=== PATIENT | male | born 1945 | race Caucasian/White ===

== ENCOUNTER 2017-03-09 09:52 | Outpatient (CLI) | payer MEDICARE, OTHER ==
--- NOTE | 2017-03-09 13:04 | XRAY Report ---
ESOPHAGRAM: 03/09/2017 CLINICAL INDICATION: Episodes of food getting stuck. FINDINGS: Esophagram was performed in the upright and prone positions. The hypopharynx appears unre markable. The esophagus is normal in caliber. Tertiary contractions are seen. There is a small sli ding hiatal hernia, which produced reflux throughout the course of the study. No esophageal ulcerati on, mass lesion, or stricturing is seen. A 13-mm barium pill passed freely through the esophagus and into the stomach. IMPRESSION: SMALL SLIDING HIATAL HERNIA, PRODUCING REFLUX. PRESBYESOPHAGUS. NO ULCERATION OR MASS LESION. FLUOROSCOPY TIME: 1 minute, 43 seconds; 22 spot images obtained. JOB #: [id number] EXT JOB #:[id number]
[2017-03-09] MEDS ORDERED: BARIUM SULFATE 176 GM BOTTLE PO ONE (13:59)
[2017-03-09] MEDS ORDERED: BARIUM SULFATE 135 ML BOTTLE PO ONE (13:59)
== END 2017-03-09 09:53 | disposition home or self-care (01) ==
LOC: DI 09:52
PROVIDERS: ATTEND Family Medicine
DX: K44.9 Diaphragmatic hernia without obstruction or gangrene (principal); K21.9 Gastro-esophageal reflux disease without esophagitis; K22.8 Other specified diseases of esophagus
CPT/HCPCS: 74220; A9270

== ENCOUNTER 2017-04-27 10:01 | Outpatient (CLI) | payer MEDICARE, OTHER ==
--- NOTE | 2017-04-27 11:09 | Mammography Report ---
DATE OF SERVICE: 04/27/2017 DIGITAL DIAGNOSTIC BILATERAL MAMMOGRAM: 04/27/2017 CLINICAL INDICATION: Tender palpable abnormality left breast. COMPARISON: Report of previous mammograms of 08/28/2003, 09/16/2002. TECHNIQUE: Routine CC and MLO projections were obtained of the breasts. FINDINGS: The breasts again demonstrate scattered fibroglandular densities. Asymmetric gynecomastia is again noted, now left greater than right. No suspicious mass, clustered microcalcifications or regions of architectural distortion are identified. IMPRESSION: Benign findings, with asymmetric gynecomastia. RECOMMENDATION: Continued clinical management. BIRADS CATEGORY 2 BENIGN FINDINGS. STANDARD QUALIFYING STATEMENTS: 1. This examination was reviewed with the aid of Computer-Aided Detection (CAD). 2. A negative or benign imaging report should not delay biopsy if clinically suspicious findings are present. Consider surgical consultation if warranted. More than 5% of cancers are not identified by imaging. 3. Dense breasts may obscure an underlying neoplasm. TD: 04/27/2017 12:08
== END 2017-04-27 10:02 | disposition home or self-care (01) ==
LOC: DI 10:01
PROVIDERS: ATTEND Family Medicine
DX: N62 Hypertrophy of breast (principal)
CPT/HCPCS: 77066

== ENCOUNTER 2019-02-21 10:00 | Outpatient (CLI) | payer MEDICARE, OTHER | END 2019-02-21 10:01 | disposition home or self-care (01) | LOC: DI 10:00 | PROVIDERS: ATTEND Family Medicine | DX: R01.1 Cardiac murmur, unspecified (principal); I77.810 Thoracic aortic ectasia | CPT/HCPCS: 93306 ==

== ENCOUNTER 2021-11-02 10:38 | Emergency (ER) | payer MEDICARE, OTHER ==
[2021-11-02 11:01] LABS: BASOPHILS % (AUTO) 0.8 %; EOSINOPHILS % (AUTO) 0.8 %; HCT - HEMATOCRIT 44.5 % (42.0-52.0); HGB - HEMOGLOBIN 15.4 g/dL (14.0-18.0); LYMPHOCYTES # (AUTO) 1.3 10^3/uL (1.5-3.5); LYMPHOCYTES % (AUTO) 26.7 %; MEAN CORPUSCULAR HEMOGLOBIN 32.3 pg (27.0-31.0); MEAN CORPUSCULAR HGB CONC 34.6 g/dL (32.0-36.0); MEAN CORPUSCULAR VOLUME 93.3 fL (80.0-94.0); MEAN PLATELET VOLUME 8.8 fL (7.4-11.4); MONOCYTES # (AUTO) 0.5 10^3/uL (0.0-1.0); MONOCYTES % (AUTO) 10.1 %; NEUTROPHILS % (AUTO) 61.4 %; PLT - PLATELET COUNT 173 10^3/uL (130-450); RED BLOOD COUNT 4.77 10^6/uL (4.70-6.10); RED CELL DISTRIBUTION WIDTH 13.3 % (12.0-15.0)
--- NOTE | 2021-11-02 11:16 | XRAY Report ---
PROCEDURE: Chest 1 View X-Ray INDICATIONS: Chest pain TECHNIQUE: One view of the chest was acquired. COMPARISON: None FINDINGS: Surgical changes and devices: None. Lungs and pleura: No pleural effusions or pneumothorax. Lungs are clear. Mediastinum: Mediastinal contours appear normal. Heart size is normal. Bones and chest wall: No suspicious bony lesions. Overlying soft tissues appear unremarkable. IMPRESSION: No acute cardiothoracic abnormality. Reviewed by: Alen Looney MD on 11/02/2021 11:15 AM PDT Approved by: Alen oLoney MD on 11/02/2021 11:15 AM PDT Station ID: [id number]
[2021-11-02 11:17] LABS: ALBUMIN 4.5 g/dL (3.2-5.5); ALBUMIN/GLOBULIN RATIO 1.6 (1.0-2.2); BILIRUBIN,TOTAL 1.1 mg/dL (0.2-1.0); CALCIUM 9.6 mg/dL (8.5-10.3); CREATININE 0.9 mg/dL (0.6-1.2); POTASSIUM 4.7 mmol/L (3.5-5.0); TOTAL PROTEIN 7.4 g/dL (6.7-8.2)
[2021-11-02 13:37] VITALS: BP 130/87
--- NOTE | 2021-11-02 13:43 | ED Physician Documentation ---
PD HPI CHEST PAIN - Stated complaint Stated Complaint: CHEST PX - Chief complaint Chief Complaint: Cardiac - Additional information Additional information: PatientA 76-year-old male presenting to the emergency department with chest pain. Reports chest pain radiating from the right to the left side of his chest that began this morning at 0500 Denies previous episodes of similar pain. States the pain has subsided at this time. Does report a past medical history significant for diabetes and hypertension. Denies any history of dyslipidemia, previous blood clots, travel, hospitalization, active or recent smoking. Review of Systems Constitutional: denies: Fever Eyes: denies: Loss of vision Ears: denies: Loss of hearing Nose: denies: Rhinorrhea / runny nose Throat: denies: Dental pain / toothache Cardiac: reports: Chest pain / pressure Respiratory: denies: Dyspnea GI: denies: Abdominal Pain : denies: Dysuria PD PAST MEDICAL HISTORY - Past Medical History Cardiovascular: None Respiratory: Sleep apnea GI: GERD : Benign prostate hypertrophy HEENT: None Psych: None Musculoskeletal: None Derm: None - Past Surgical History Past Surgical History: No - Present Medications Home Medications: Ambulatory Orders Medication Instructions Recorded Confirmed metFORMIN [Glucophage] 1,000 mg ORAL BID 12/26/15 12/26/15 raNITIdine [Zantac] 150 mg ORAL BID PRN MDD 300 mg 12/26/15 12/26/15 - Allergies Allergies/Adverse Reactions: Allergies Allergy/AdvReac Type Severity Reaction Status Date / Time No Known Drug Allergies Allergy Verified 12/26/15 20:33 - Social History Does the pt smoke?: No Smoking Status: Former smoker Does the pt drink ETOH?: Yes Does the pt have substance abuse?: No - Immunizations Immunizations are current?: Yes - POLST Patient has POLST: No PD ED PE NORMAL - General General: Alert and oriented X 3 - HEENT HEENT: Atraumatic - Neck Neck: Supple, no meningeal sign - Cardiac Cardiac: RRR, No murmur, No gallop, Strong equal pulses - Respiratory Respiratory: No respiratory distress - Abdomen Abdomen: Normal bowel sounds, Non tender - Male Male : Deferred, Sales Marketing Director present - Back Back: No CVA TTP - Derm Derm: Normal color Results - Vitals Vitals: Vital Signs - 24 hr 11/02/21 11/02/21 10:43 13:30 Temperature 36.5 C Heart Rate 77 69 Respiratory 19 11 L Rate Blood Pressure 145/95 H 130/87 H O2 Saturation 99 100 Oxygen O2 Source Room air - EKG (time done) 1000 Rate: Rate (enter#) (78) Rhythm: NSR [place]: Normal Intervals: Normal HI QRS: Normal Ischemia: Normal ST segments Compare to prior EKG: Old EKG unavailable Computer interpretation: Agree with computer - Labs Labs: Laboratory Tests 11/02/21 11/02/21 11/02/21 10:55 10:55 10:55 WBC 5.0 RBC 4.77 Hgb 15.4 Hct 44.5 MCV 93.3 MCH 32.3 H MCHC 34.6 RDW 13.3 Plt Count 173 MPV 8.8 Neut # (Auto) 3.0 Lymph # (Auto) 1.3 L [place] # (Auto) 0.5 Eos # (Auto) 0.0 Baso # (Auto) 0.0 Absolute Nucleated RBC 0.00 Nucleated RBC % 0.0 Sodium 139 Potassium 4.7 Chloride 101 Carbon Dioxide 29 Anion Gap 9.0 BUN 17 Creatinine 0.9 Estimated GFR (MDRD) 82 L Glucose 132 H Calcium 9.6 Total Bilirubin 1.1 H AST 19 ALT 26 Alkaline Phosphatase 77 Troponin I High Sens 4.0 Total Protein 7.4 Albumin 4.5 Globulin 2.9 Albumin/Globulin Ratio 1.6 Lipase 37 11/02/21 12:57 WBC RBC Hgb Hct MCV MCH MCHC RDW Plt Count MPV Neut # (Auto) Lymph # (Auto) [place] # (Auto) Eos # (Auto) Baso # (Auto) Absolute Nucleated RBC Nucleated RBC % Sodium Potassium Chloride Carbon Dioxide Anion Gap BUN Creatinine Estimated GFR (MDRD) Glucose Calcium Total Bilirubin AST ALT Alkaline Phosphatase Troponin I High Sens 4.0 Total Protein Albumin Globulin Albumin/Globulin Ratio Lipase PD MEDICAL DECISION MAKING - ED course Complexity details: reviewed results, d/w patient ED course: Patient presents to the emergency department with intermittent right-sided chest pain that resolved prior to arrival. EKG, x-ray and serial troponins Negative. Patient reported a history of a negative stress test greater than 20 years ago. Does have 2 identifiable risk factors, diabetes and hypertension. Heart score calculated at 3. Discussed care with the medical team at [facility] who are aware of him and will make follow-up appointment and refer for stress test in the immediate future as needed. Encouraged immediate return to the emergency department for any new or worsening symptoms. Departure - Departure Disposition: 01 Home, Self Care Clinical Impression: Chest pain Instructions: ED Chest Pain Atypical Unkn Cause Comments: Thank you for allowing us to care for you today at [facility]. All the testing performed in the emergency department today including your EKG, blood work and chest x-ray were all very reassuring. I do not see any indications of injury to your heart at this time. You do have some risk factors for coronary artery disease and would benefit from further testing. I spoke with the team at [facility] and they are aware of your ER visit. I like you to call them either today or first thing tomorrow in order to schedule follow-up appointment. If it anytime you have any new or worsening symptoms it is important that you return to the emergency department promptly for reevaluation.
== END 2021-11-02 14:15 | disposition home or self-care (01) ==
LOC: ED 10:38
DX: R07.9 Chest pain, unspecified (principal); Z87.891 Personal history of nicotine dependence
CPT/HCPCS: 36415; 80053; 83690; 84484; 85025; 93005; 99283; 99284

== ENCOUNTER 2022-09-06 13:15 | Outpatient (CLI) | payer MEDICARE, OTHER ==
--- NOTE | 2022-09-06 14:16 | Sleep Patient Instructions ---
Sleep Center Visit Summary - Patient Visit Information Reason for Visit: Initial consult to establish care for CPAP therapy - Patient Instructions Additional Instructions: You were here for follow up of CPAP therapy. You will be continued on CPAP therapy with pressure at 9-12 cmH2O. Please let us know if the pressure change is uncomfortable and we can make further adjustments of the pressure. Your prescription at [facility] that will be updated. You should follow up with sleep care in 1-2 months. You may contact us sooner for any questions or concerns. - Clinic Information Contact: [facility] [address] [place] [id number] [email or web address] T: [phone]
--- NOTE | 2022-09-06 14:28 | SLEEP CARE CONSULTATION ---
Information from patient questionnaire entered by Eliza Connell. I have reviewed and concur with the information entered by Eliza Connell. This document represents the service I personally performed and the decisions made by me, Sarah Vargas ARNP. History of Present Illness Service Date and Time: 09/06/2022 1315 Reason for Visit: New patient, Previously diagnosed sleep apnea, sleep apnea on CPAP therapy Chief Complaint: reports: Other (CPAP RX) Date of Onset: 24 YRS Usual bedtime: 930PM Time it takes to fall asleep: 10SEC Snores at night: Yes Observed to quit breathing while asleep: Yes Sleeps alone due to snoring: No Number of times waking at night: RARELY Reasons for waking at night: reports: Bathroom Toss, Turn, or Twitch while sleeping: No Recalls having dreams: Yes Feels refreshed in the morning: Yes Morning headache: No Sleepy or fatigued during the day: Yes Ever fallen asleep while driving: No Takes day naps: No Dreams during day naps: No Prior sleep studies: Yes Additional HPI information: MELITA HORVATH was previously diagnosed to have extremely severe, AHI 90.4, obstructive sleep apnea-hypopnea syndrome as seen in split night PSG dated 11/06/[address] [facility] and comes in today to establish care for CPAP therapy. - Parasomnia Symptoms Ever been unable to move upon waking from sleep: No Walks in sleep: No Talks in sleep: No Ever acted out dreams in sleep: No Ever felt weak in the knees when startled or emotional: No Bothered by creepy, crawly, restless sensations in legs: No Problems with memory or concentration: Yes CPAP Compliance Data - Data Reviewed with Patient Average duration of nightly device use: 8 hours 6 minutes Compliance rate %: 100 (30/ days used) Current pressure setting (cmH2O): 9.0 Average residual AHI: 12.4 Average large leak: 16 mins 50 secs Compliance data discussion: He has a REMstar Pro. He just received a recertified Dreamstation but is still waiting for supplies to use it. He has been using [employer] for his supplies. He has been using a [employer]Med Mirage Micro nasal mask but it is being discontinued. He was sent a different mask to use but he does not know the name. Subjective Patient concerns: denies: aerophagia, mask discomfort, air blowing in eyes, mask leak noise, condensation in mask/hose, nasal congestion, dry mouth, nose, throat, epistaxis Observed to snore while using device: No Current pressure setting perceived as: comfortable On therapy, patient: reports: sleeping better, awakening more refreshed, being more awake and alert during the day, more rested overall. denies: drowsiness while driving Initial [place] Sleepiness Scale score: 15 (09/02/22) Past Medical History Past Medical History: reports: Hypertension, Diabetes, Arthritis, Impotence, GERD Social History The patient's occupation is a RE. Patient is and lives in [place]. Have you smoked in the past 12 months: No Years of smokin Quit date: 1969 Alcohol use: Yes Alcohol amount and frequency: 6 BOTTLES A YR Caffeine use: Yes Caffeine amount and frequency: QT A DAY Family History Family history of sleep disordered breathing: No (don't know) Allergies and Home Medications Known drug allergies: No Drug allergies reviewed: Yes Home medication list reviewed: Yes Allergy and home medication list: Allergies No Known Drug Allergies Allergy (Verified 09/02/22 15:30) Medications: Ozempic Metformin 1000 mg twice a day Lisinopril 5 mg Review of Systems Weight loss over past 5 years: 30-50 Cardiovascular: reports: high blood pressure Gastrointestinal: reports: heartburn, difficulty swallowing Urinary: reports: impotence Neurological: reports: other (VERTIGO). denies: headaches Psychiatric: denies: anxiety, depression Ear/Nose/Throat: reports: wisdom teeth removed Endocrine: denies: thyroid disease Musculoskeletal: reports: back pain, muscle pain or cramping Immunologic: reports: sneezing Physical Exam Vital signs obtained and entered by: ELIZA Brown MA Blood Pressure: 118/76 (LEFT ARM) Cuff size: regular Heart Rate: 81 O2 Saturation: 97 Height: 6 ft Weight: 235 lb 9.6 oz Body Mass Index: 31.9 BMI Classification: Obese Neck circumference: 18.5 Heart: regular rate and rhythm Lungs: clear bilaterally Impression and Plan 1. Obstructive Sleep Apnea-Hypopnea Syndrome, extremely severe, with good treatment compliance and good apnea control. On CPAP therapy, the patient has better sleep quality and is more rested overall. Patient received replacement device for his REMstar Pro from [employer]. He has not started using it yet. He was sent a replacement mask for his mask that is discontinued. He was told by [employer] that they will be sending him an SD modem that was not sent with the machine. Patient has significant improvement of their sleep apnea and is satisfied with current CPAP therapy. The patients pressure will be changed to autoCPAP 9-12 cmH20 for elevation of residual AHI. Patient advised to contact me if pressure change is uncomfortable so that it can be adjusted. Goals for apnea control discussed. Patient's apnea severity and rationale for treatment to reduce apnea, improve sleep quality and reduce cardiovascular and cerebrovascular events was reviewed. I also reviewed the benefit of consistent device use of CPAP for hypertension, diabetes, and gastric reflux. 2. Obesity, unspecified. Currently patients BMI is 31.9. Obesity increases the risk of apnea, CPAP pressure requirements and overall health risks especially cardiovascular and diabetes. Thus patient is advised to lose weight. * Change auto CPAP pressure to 9-12 cmH2O * Update supplies * Notify me if snoring with mask or feeling that the pressure is too much or too little * Attempt to lose weight * Call this office if any problems using CPAP * Return for follow up in 1-2 months, or sooner if concerns arise Counseling Topics: Spare mask, Weight loss health impact Visit Type: In Office Time Spent with Patient (minutes): 44 Provider Statement: I spent 100% of the Face to Face Visit with the patient with greater than 50% spent counseling the patient and coordination of care.
[2022-09-06 14:39] VITALS: BP 118/76
== END 2022-09-06 13:16 | disposition home or self-care (01) ==
LOC: SC 13:15
PROVIDERS: ATTEND Nurse Practitioner Family
DX: G47.33 Obstructive sleep apnea (adult) (pediatric) (principal); E66.9 Obesity, unspecified; Z68.31 Body mass index [BMI] 31.0-31.9, adult
CPT/HCPCS: 99203; G0463; 99212